=== PATIENT | male | born 1960 | race Caucasian/White ===

== ENCOUNTER 2023-07-22 10:02 | Outpatient (CLI) | payer BC, SELFPAY ==
--- NOTE | 2023-07-22 10:15 | MR_ITS ---
[address] [address] Phone:?[phone] Fax:?[phone] Referring Physician Information: Marquis Alvarado M.D. [id number] [facility] [address] Phone:?[phone] Fax:?[phone] Patient:?Enrike Marquez D.O.B:?1960 Sex:?Male Phone:?[phone] [facility] MRN:?[id number] Exam Date:?07/22/2023 EXAM: MRI EXAMINATION OF THE LEFT KNEE CLINICAL INFORMATION: Left knee pain. History of injury. No history of surgery to this area. Possible medial meniscus root tear. TECHNICAL INFORMATION: Coronal PD and STIR. Axial PD and T2 fat saturation. Sagittal PD and PD fat saturation images acquired. No prior studies for comparison. INTERPRETATION: Bones: Poorly defined abnormal marrow edema signal arises from the posterior lateral aspect of the medial tibial plateau. Patchy mild subchondral edema signal and cystic change involves the patella. No occult fracture or AVN. No other abnormal bone marrow edema pattern is identified. Ligaments and tendons: The medial collateral ligament is intact, without acute sprain or tear. The iliotibial band, fibular collateral ligament, biceps femoris tendon and popliteus tendon all are intact. The anterior cruciate ligament is intact without acute sprain or tear. The posterior cruciate ligament is intact. Extensor Mechanism: The patellar and quadriceps tendons are seen to be intact. Mild to moderate quadriceps tendinopathy. The medial and lateral retinacula are intact. Knee Joint: There is a small knee joint effusion. No discrete popliteal cyst. There is no discrete loose body seen within the joint. Medial Compartment: There is tearing all along the undersurface of the mid to posterior body of the medial meniscus. Horizontal tearing involves the undersurface and apical margin continuing within the posterior horn. There is complex tearing towards the far posterior horn, with superimposed high-grade radial component. Tearing continues into the posterior root insertion. No displaced flap fragment or parameniscal cyst. There is no focal chondral defect. No other significant changes of chondromalacia. Lateral Compartment: There is no evidence for discrete lateral meniscal tear. No displaced flap fragment or parameniscal cyst. There is no focal chondral defect. No other significant changes of chondromalacia. Patellofemoral articulation: There is a 7 mm segment of grade III chondromalacia superior to the midportion of midline patella. Localized grade 2 appearing chondromalacia involves the periphery of the lateral patellar facet. No other significant chondromalacia. CONCLUSION: 1. Predominant horizontal tearing involving the body and posterior horn medial meniscus. This continues as a complex tear with a high-grade radial component towards the far posterior horn. Tearing continues into the posterior root insertion. Adjacent reactive marrow edema signal. 2. No lateral meniscal tear. The cruciate ligaments are intact. 3. Small areas of patellar chondromalacia, including a 7 mm segment of grade III involvement of the midline patella. 4. Mild to moderate quadriceps tendinopathy. 5. There is a small knee joint effusion. KES Electronically signed on 07/22/2023 11:58:00 AM by Steven Hernandez M.D.
== END 2023-07-22 10:03 | disposition home or self-care (01) ==
PROVIDERS: PCP Student in an Organized Health Care Education/Training Program; Visit Provider Orthopaedic Surgery
DX: M25.562 Pain in left knee (principal); S83.232A Complex tear of medial meniscus, current injury, left knee, initial encounter; M22.42 Chondromalacia patellae, left knee; M25.462 Effusion, left knee
CPT/HCPCS: 73721

== ENCOUNTER 2024-11-10 06:38 | Outpatient (CLI) | payer BC, SELFPAY ==
--- NOTE | 2024-11-10 07:51 | P.ANES_ITS ---
Anesthesia Charges Start Date/Time Anesthesia Start Date: 11/10/24 Anesthesia Start Time: 07:30 Stop Date/Time Anesthesia Stop Date: 11/10/24 Anesthesia Stop Time: 07:50 Coding CPT Codes CPT Codes: ALBERTA LWSelina INTST NDSC NOS - [id number] ([id number]) P2 - PATIENT W/MILD SYST DISEASE, QX - CHILDREN'S PROGRAM COORDINATOR SVC W/ MD MED DIRECTION, QK - USER SUPPORT ANALYST SUPERVISOR 2-4 CNCRNT ANES PROC
--- NOTE | 2024-11-10 07:51 | W.ANESCHARGE ---
Anesthesia Charges Start Date/Time Anesthesia Start Date: 11/10/24 Anesthesia Start Time: 07:30 Stop Date/Time Anesthesia Stop Date: 11/10/24 Anesthesia Stop Time: 07:50 Coding CPT Codes CPT Codes: ALBERTA LWSelina INTST NDSC NOS - [id number] ([id number]) P2 - PATIENT W/MILD SYST DISEASE, QX - IT SOFTWARE ENGINEER SVC W/ MD MED DIRECTION, QK - LOGISTICS PLANNING ENGINEER 2-4 CNCRNT ANES PROC
--- NOTE | 2024-11-10 08:54 | P.ANES_ITS ---
Anesthesia Charges Start Date/Time Anesthesia Start Date: 11/10/24 Anesthesia Start Time: 07:30 Stop Date/Time Anesthesia Stop Date: 11/10/24 Anesthesia Stop Time: 07:50 Coding CPT Codes CPT Codes: ALBERTA LWR INTST NDSC NOS - 23929 ([id number]) P2 - PATIENT W/MILD SYST DISEASE, QK - CLASSROOM MONITOR 2-4 CNCRNT ANES PROC, QX - PHYSICAL OPTICS TEACHER SVC W/ MD MED DIRECTION
--- NOTE | 2024-11-10 08:54 | W.ANESCHARGE ---
Anesthesia Charges Start Date/Time Anesthesia Start Date: 11/10/24 Anesthesia Start Time: 07:30 Stop Date/Time Anesthesia Stop Date: 11/10/24 Anesthesia Stop Time: 07:50 Coding CPT Codes CPT Codes: ALBERTA LWR INTST NDSC NOS - [id number] ([id number]) P2 - PATIENT W/MILD SYST DISEASE, QK - WATER POLLUTION CONTROL TECHNICIAN 2-4 CNCRNT ANES PROC, QX - BOW REPAIRER CUSTOM SVC W/ MD MED DIRECTION
== END 2024-11-10 06:39 | disposition home or self-care (01) ==
LOC: OP CLINIC 06:40
PROVIDERS: PCP Student in an Organized Health Care Education/Training Program; Visit Provider Internal Medicine Gastroenterology
DX: Z12.11 Encounter for screening for malignant neoplasm of colon (principal); D12.4 Benign neoplasm of descending colon
CPT/HCPCS: 00811; 00812; 45385; 88305; J2704